=== PATIENT | female | born 1930 | race Caucasian/White ===

== ENCOUNTER 2016-11-25 08:54 | Day surgery (SDC) | payer OTHER ==
[2016-11-24 14:03] VITALS: BMI 28.2
[~2016-11-25 08:54] MED LIST: ACETAMINOPHEN 325 MG TABLET (FP) PO PRN
[2016-11-25] MEDS ORDERED: TROPICAMIDE 1% OPHTH SOLN 15 ML BOTTLE ONE (09:09)
[2016-11-25] MEDS ORDERED: CYCLOPENTOLATE HCL 1% OPHTH SOLN 2 ML BOTTLE ONE (09:09)
[2016-11-25] MEDS ORDERED: CIPROFLOXACIN 0.3% EYE DROPS 5 ML BOTTLE ONE (09:09)
[2016-11-25] MEDS ORDERED: FLURBIPROFEN 0.03% OPHTH SOLN 2.5 ML BOTTLE ONE (09:09)
[2016-11-25] MEDS ORDERED: PHENYLEPHRINE 2.5% OPHTH SOLN 15 ML BOTTLE ONE (09:10)
[2016-11-25] MEDS: TROPICAMIDE 1% OPHTH SOLN 15 ML BOTTLE OP SCH ×3 (09:20→09:30)
[2016-11-25] MEDS: CYCLOPENTOLATE HCL 1% OPHTH SOLN 2 ML BOTTLE OP SCH ×3 (09:20→09:30)
[2016-11-25] MEDS: FLURBIPROFEN 0.03% OPHTH SOLN 2.5 ML BOTTLE OP SCH ×3 (09:20→09:30)
[2016-11-25] MEDS: CIPROFLOXACIN HCL 0.3% OPHTH 2.5ML BOTTLE OP SCH ×3 (09:20→09:30)
[2016-11-25] MEDS: PHENYLEPHRINE 2.5% OPHTH SOLN 15 ML BOTTLE OP SCH ×3 (09:20→09:30)
[2016-11-25 09:40] VITALS: TEMP 97.5
[2016-11-25] MEDS ORDERED: PROPOFOL 20 ML ONE (10:23)
[2016-11-25] MEDS ORDERED: LIDOCAINE HCL/PF 2% SDV 5ML VIAL PNB ONE ×2 (10:33→10:34)
[2016-11-25] MEDS ORDERED: BUPIVACAINE HCL/PF 0.75% 10 ML VIAL RB ONE (10:33)
[2016-11-25] MEDS ORDERED: BUPIVACAINE HCL/PF 0.75% 10 ML VIAL PNB ONE (10:34)
[2016-11-25] MEDS ORDERED: TRYPAN BLUE 0.5 ML DISP.SYRIN IO ONE (10:45)
[2016-11-25] MEDS ORDERED: CHONDROITIN SU A/HYALUR SOD 1 KIT IO ONE (10:46)
[2016-11-25 12:18] VITALS: BP 111/65; PULSE 51
--- NOTE | 2016-11-26 09:44 | SPEC ---
DATE OF SURGERY: DATE OF DICTATION: 11/25/2016 PREOPERATIVE DIAGNOSIS: Mature cataract. POSTOPERATIVE DIAGNOSIS: Mature cataract. OPERATION: Phacoemulsification of right cataract with capsular staining with Trypan blue and posterior chamber intraocular lens implantation. Lens used [id number], 22.5 diopter, Serial No. [id number]. ANESTHESIA: Peribulbar/modified Van Lint/MAC. COMPLICATIONS: None. PROCEDURE: The patient was brought to the operating room and correctly identified along with the operative site as well as correct intraocular lens hill. She was then given a peribulbar block under sedation with 5 mL of 1:1 mixture of 2% lidocaine and 0.75% bupivacaine. Then 2 mL of the same mixture was given as modified Van Lint. The eye was then prepped and draped in the usual sterile fashion including Betadine solution in the conjunctival sac and an eyelid drape. An eyelid speculum was then placed into the right eye. A paracentesis port was created and intracameral lidocaine was given, then the air bubble was placed with immediate air bubble and capsule was stained with Trypan blue. A dense cataract was noted with poor red reflex. Viscoelastic was injected to inflate the anterior chamber, and temporal clear corneal wound was created. A continuous circular capsulorrhexis was performed. The nucleus was then hydro-dissected with BSS and removed with phacoemulsification. The lens was noted to be rather dense, and care was made to use most of the phacoemulsification energy within the capsular bag. Very little was used supracapsular. The cortical material was then irrigated and aspirated from the eye. Viscoelastic was injected to inflate the capsular bag. The lens was then injected into the capsular bag. Viscoelastic irrigated and aspirated from the eye. All wounds were tested and found to be watertight, and the intraocular lens was covered by the anterior capsular border and well centered. Topical vancomycin given, eye patch too and the patient discharged from the operating room in stable condition. JESSICA HERMAN M.D. [id number]
== END 2016-11-25 12:25 | disposition home or self-care (01) ==
LOC: JASU-SURG 08:54
PROVIDERS: ATTEND Ophthalmology
PROC: 08RJ3JZ Replacement of Right Lens with Synthetic Substitute, Percutaneous Approach (ICD-10-PCS; principal; 2016-11-25 11:00)
DX: H25.091 Other age-related incipient cataract, right eye (principal); R29.2 Abnormal reflex; H26.8 Other specified cataract